=== PATIENT | female | born 1995 ===

== ENCOUNTER 2017-08-06 17:18 | Inpatient (IN) | payer MEDICAID ==
--- NOTE | 2017-08-06 17:34 | C.PDOC ---
History Of Present Illness 22 y/o F c PMHx opiate abuse sent from [facility] program for suicidal thoughts without plan. Denies HI or hallucinations. Denies pain, fever, dyspnea. Time Seen by Provider: 08/06/17 17:32 Chief Complaint (Nursing): Psychiatric Evaluation Past Medical History Vital Signs: Last Vital Signs Temp 98.6 F 08/06/17 18:28 Pulse 102 H 08/06/17 18:28 Resp 20 08/06/17 18:28 BP 112/76 08/06/17 18:28 Pulse Ox 100 08/06/17 18:28 Surgical History: Tonsillectomy Family History: States: No Known Family Hx - Social History Hx Alcohol Use: No Hx Substance Use: Yes (LAST USE MAY 2017) Review Of Systems Except As Marked, All Systems Reviewed And Found Negative. Constitutional: Negative for: Fever Cardiovascular: Negative for: Chest Pain Physical Exam - Physical Exam Additional Physical Exam Comments: Constitutional: No acute distress. Head: Normocephalic. Atraumatic. Eyes: PERRL. ENT: Moist mucous membranes. Neck: Supple. Cardiovascular: Regular rate. Radial pulse 2+ bilaterally. Chest: No tenderness. Respiratory: Clear to auscultation bilaterally. GI: Soft. Nontender. Nondistended. Back: No CVA tenderness. Musculoskeletal: No tenderness or swelling. Skin: No rash. Neurologic: Alert, no focal deficit. ED Course And Treatment - Laboratory Results Result Diagrams: 08/06/17 17:46 08/06/17 17:46 Medical Decision Making Medical Decision Making: Will medically clear for psychiatric evaluation. Medically clear, accepted for admission by Dr. Maldonado. Disposition - Disposition Disposition: HOSPITALIZED Disposition Time: 19:16 Condition: FAIR Forms: [facility]: [facility]t (Slovak) - Clinical Impression Clinical Impression: Bipolar disorder
[2017-08-06 17:55] LABS: BASO % 0.5 % (0.0-2.0); EOS # 0.1 K/uL (0.0-0.7); EOS % 1.6 % (0.0-4.0); HEMATOCRIT 37.1 % (34.0-47.0); LYMPH # 3.2 K/uL (1.0-4.3); LYMPH % 47.5 % (20.0-40.0); MEAN CELL VOLUME 83.1 fL (81.0-99.0); MEAN CORPUSCULAR HGB CONC 33.6 g/dL (33.0-37.0); MEAN PLATELET VOLUME 8.5 fL (7.2-11.7); MONO # 0.3 K/uL (0.0-0.8); MONO % 5.2 % (0.0-10.0); RED CELL DISTRIBUTION WIDTH 15.7 % (11.5-14.5); WHITE BLOOD COUNT 6.7 K/uL (4.8-10.8)
[2017-08-06 18:12] LABS: ALB/GLOB RATIO 0.9 (1.0-2.1); ALCOHOL SERUM < 10 mg/dl (0-10); ALKALINE PHOSPHATASE 58 U/L (38-126); ALT/SGPT 332 U/L (9-52); AST/SGOT 106 U/L (14-36); BILIRUBIN,TOTAL 0.2 mg/dL (0.2-1.3); BLOOD UREA NITROGEN 16 mg/dL (7-17); CARBON DIOXIDE 27 mmol/L (22-30); CHLORIDE 107 mmol/L (98-107); GFR AFRICAN-AMERICAN > 60; GLUCOSE,RANDOM 96 mg/dL (65-105); POTASSIUM 3.7 mmol/L (3.6-5.2); SODIUM 140 mmol/L (132-148); TOTAL PROTEIN 8.9 g/dL (6.3-8.3)
[2017-08-06 18:23] LABS: RBC URINE 5 /hpf (0-3); URINE BACTERIA RARE (<OCC); URINE BILIRUBIN NEGATIVE (NEGATIVE); URINE BLOOD NEGATIVE (NEGATIVE); URINE COLOR Yellow (YELLOW); URINE GLUCOSE (UA) NORMAL (Normal); URINE KETONE NEGATIVE (NEGATIVE); URINE LEUKOCYTE ESTERASE 3+ Leu/uL (Negative); URINE PROTEIN NEGATIVE (NEGATIVE); URINE UROBILINOGEN NORMAL mg/dL (0.2-1.0); WBC URINE 20 /hpf (0-5)
--- NOTE | 2017-08-06 20:27 | PCM.BM ---
<Heydi Kirk - Last Filed: 08/06/17 20:23> Treatment Plan Problems - Problems identified on initial assessmt Depression Date Initiated: 08/06/17 Time Initiated: 20:23 Assessment reference: NA Status: Active Suicidal Ideation Date Initiated: 08/06/17 Time Initiated: 20:23 Assessment reference: NA Status: Active Treatment assets and liabiliti Patient Assests: cooperative, self-reliant, ADL independent, physically healthy , negotiates basic needs, cognitively intact Patient Liabilities: live alone ([facility]), financial problems, poor support system, substance abuse (Hx of heroin Abuse last used 05/2017), medical problems (Hep C) - Milieu Protocol Maintain good personal hygiene: daily Encourage regular showers, daily Remind patient to perform daily oral care, every shift Assist patient to perform ADL's (Self), other Assist patient to perform ADL's Conduct patient checks and document Observation sheet: Q15 minutes (safety) Maintain personal safety: every shift Educate patient to report safety concerns to staff, every shift Monitor environment for contraband/sharps Medication safety: Monitor for expected outcome, potential side effects: every shift, Assess barriers to learning: every shift, Assess readiness for medication education: every shift <Kellie Ardon - Last Filed: 08/07/17 10:54> Family Contact Family involvement: Family/SO is involved - Goals for Treatment Patient goals for treatment: "I really just want to go back to [facility]." Discharge/Continuing Care - Education Needs Education Needs: Patient Medication, Patient Coping Skills - Discharge Discharge Criteria: Tolerates medication w/o severe side effects, Free of Suicidal thoughts, Reduction of target symptoms Discharge to:: Substance Abuse Rehab - Treatment Team Participation Discussed with Family/SO: No Was Patient/Family/SO present at Treatment Team Meeting: Yes <Guillermo Rubin - Last Filed: 08/07/17 13:25> - Diagnosis (1) Opioid use disorder, severe, in controlled environment Status: Acute Interventions: 08/07/17 13:25 * Assess 7x/week regarding severity of withdrawal * Educate regarding risks, benefits, side effects and alternatives of medications * Use Motivational Interviewing for abstinence * Use CBT for relapse prevention * Medication management for withdrawal symptoms * Encourage medication assisted treatment * (2) Bipolar disorder Status: Acute Interventions: 08/07/17 13:25 * Assess/adjust medications daily and /or as needed * See patient on an individual basis 7x/week to assess level of manic behaviors and stability * Discuss risks, benefits, side effects and alternatives of medications *
[2017-08-06] MEDS ORDERED: Lithium Carbonate ER Tab 450 MG PO ONE (22:00)
[2017-08-07 05:58] VITALS: O2SAT 98
--- NOTE | 2017-08-07 13:55 | PCM.PYCHPN ---
Psychiatric Progress Note - Psychiatric Progress Note Patient seen today, length of contact: 15 minutes Patient Chief Complaint: " I was not able to sleep well at night and I do have nightmares" Problems Identified/Issues Discussed: The pt is seen, chart reviewed, case discussed with staff. Support given, CBT and [place] used briefly No new symptoms reported No SEs from medications, risks discussed. Patient states that she had worsening depressive symptoms after receiving depo injection Patient states that her bipolar disorder has been misdiagnosed for ADHD in the past Patient states that she has experienced moments of "high energy" in the past but unable to recall the last episode. Medication Change: Yes (Started abilify 5mg, Lexapro 5mg, Gabapentin 300mg, Atarax 25mg, Trazadone ) Medical Record Reviewed: Yes Mental Status Examination - Cognitive Function Orientation: Person, Place, Situation, Time Memory: Intact Attention: WNL Concentration: WNL Association: WNL Fund of Knowledge: WN - Mood Mood: Depressed, Anxious - Affect Affect: Other (Appropriate ) - Speech Speech: Appropriate - Formal Thought Process Formal Thought Process: No Impairment - Suicidal Ideation Suicidal Ideation: No - Homicidal Ideation Homicidal Ideation: No Goal/Treatment Plan - Goal/Treatment Plan Progress Toward Problem(s) and Goals/Treatment Plan: Assessment/Plan: 1. Bipolar II disorder Medications: * Abilify 5mg PO QPM 2. Depression: * Lexapro 5mg PO daily 3. Anxiety: * Atarax 25mg PO Q4H PRN * Lexapro 5mg PO daily 4. Insomnia: * Trazadone 50mg PO HS PRN 5. History of substance abuse (last used 05/2017): * Gabapentin augmentation, 300mg PO BID * Patient does not want to attend a suboxone or methadone clinic 6. Tobacco use: * Nicotine 1 Patch TD Continue medications Support and psychoeducation daily Attend groups and activities daily Patient plans to go to [facility] upon discharge
--- NOTE | 2017-08-07 19:20 | PCM.PSYCH ---
Initial Psychiatric Evaluation - Initial Psychiatric Evaluation Chief Complaint (in patient's own words): " Suicidal ideation" History of Present Illness and Precipitating Events: This is 22 year old [place] female, single, unemployed, staying at [facility] program has mandated by the [place] [facility] depression program, who has a history of heroin, cocaine, marijuana, PCP and xanax and hep C and bipolar. Patient is functional. Patient presents from [facility] for suicidal thoughts without plan. Patient uses 23 bags or bundles via IV for 6 years Patient use cocaine via IV Patient uses marijuana, PCP and xanax No methadone or suboxone program Past psych history: Bipolar, depression and anxiety Family psych history: Dad ( Bipolar disorder and substance abuse Uncle (Bipolar disorder) Medical history: Denies Current Medications: Active Medications Generic Name Dose Route Start Last Admin Trade Name Freq PRN Reason Stop Dose Admin Aripiprazole 5 mg 08/07/17 18:00 08/07/17 17:49 Abilify PO 5 mg QPM [place] Administration Escitalopram Oxalate 5 mg 08/07/17 13:00 08/07/17 15:06 Lexapro PO 5 mg DAILY [place]QUIS Administration Gabapentin 300 mg 08/07/17 18:00 08/07/17 17:49 Neurontin PO 300 mg BID [place]IS Administration Hydroxyzine HCl 25 mg 08/07/17 12:57 08/07/17 17:58 Atarax PO 25 mg Q4H PRN Administration Anxiety Ibuprofen 400 mg 08/07/17 12:57 08/07/17 17:58 Motrin Tab PO 400 mg Q6H PRN Administration Pain, moderate (4-7) Nicotine 1 patch 08/07/17 12:45 08/07/17 15:05 Nicoderm Cq TD 1 patch DAILY CHIQUIS Administration Pneumococcal Polyvalent Vaccine 0.5 ml 08/09/17 10:00 Pneumovax 23 Vaccine IM 08/09/17 10:01 .ONCE ONE Trazodone HCl 50 mg 08/07/17 22:00 Desyrel PO HS PRN Insomnia Past Psychiatric History - Past Psychiatric History Pertinent Medical Hx (Current Medical&Sleep Prob, Allergies): Allergies Allergy/AdvReac Type Severity Reaction Status Date / Time No Known Allergies Allergy Verified 08/06/17 17:25 Calcium Carb/Vitamin D3/Vit K1 [Calcium + D Soft Chewable Tab] 1 each PO DAILY 08/06/17 Cyclobenzaprine [Cyclobenzaprine HCl] 10 mg PO HS 08/06/17 Gabapentin [Neurontin] 1 cap PO HS 08/06/17 [place] Carbonate [[place] Carbonate 300MG] 300 mg PO BID 08/06/17 Melatonin 5 mg PO HS 08/06/17 OLANZapine [Zyprexa] 7.5 mg PO HS 08/06/17 Propranolol HCl 10 mg PO BID 08/06/17 Review of Systems - Neurological Neurological: UNREMARKABLE - Psychiatric Psychiatric: Abnormal Sleep Pattern, Anxiety, Depression. absent: Hallucinations, Homicidal Ideation, Panic Attacks, Suicidal Ideation Mental Status Examination - Affect Affect: Depressed - Motor Activity Motor Activity: Calm - Reliability in Providing Information Reliability in Providing Information: Good - Speech Speech: Organized - Mood Mood: Anxious - Formal Thought Process Formal Thought Process: No Impairment - Cognitive Functions Orientation: Person, Place, Situation, Time Sensorium: Alert Attention/Concentration: Attentive Abstract Thinking: [place] Estimate of Intelligence: Average Judgement: Intact, as evidence by: Insight regarding need for hospitalization Memory: Recent intact, as evidence by: Ability to recall events of the day DSM 5 DX - Recommended/Plan of Treatment Treatment Recommendations and Plan of Treatment: Assessment/Plan: 1. Bipolar II disorder Medications: * Abilify 5mg PO QPM 2. Depression: * Lexapro 5mg PO daily 3. Anxiety: * Atarax 25mg PO Q4H PRN * Lexapro 5mg PO daily 4. Insomnia: * Trazadone 50mg PO HS PRN 5. History of substance abuse (last used 05/2017): * Gabapentin augmentation, 300mg PO BID * Patient does not want to attend a suboxone or methadone clinic 6. Tobacco use: * Nicotine 1 Patch TD Continue medications Support and psychoeducation daily Attend groups and activities daily Patient plans to [facility] discharge Projected ELOS: 5 Prognosis: Good with treatment Discharge Plan and Discharge Criteria: Plans [facility] discharge - Smoking Cessation Smoking Cessation Initiated: Yes
--- NOTE | 2017-08-08 14:00 | PCM.PYCHPN ---
Psychiatric Progress Note - Psychiatric Progress Note Patient seen today, length of contact: 15 minutes Patient Chief Complaint: " Suicidal ideation" Problems Identified/Issues Discussed: The pt is seen, chart reviewed, case discussed with staff. Support given, CBT and [place] used briefly No new symptoms reported No SEs from medications, risks discussed. During today's encounter, patient states that her symptoms are improving, however, still complains about sleep disturbance Medication Change: Yes (May start seroquel 100mg PO ) Medical Record Reviewed: Yes Mental Status Examination - Cognitive Function Orientation: Person, Place, Situation, Time Attention: WNL Concentration: WNL Association: WNL Fund of Knowledge: WN - Mood Mood: Anxious - Affect Affect: Depressed - Speech Speech: Appropriate - Formal Thought Process Formal Thought Process: No Impairment - Suicidal Ideation Suicidal Ideation: No - Homicidal Ideation Homicidal Ideation: No Goal/Treatment Plan - Goal/Treatment Plan Progress Toward Problem(s) and Goals/Treatment Plan: Assessment/Plan: 1. Bipolar II disorder Medications: * Abilify 5mg PO QPM 2. Depression: * Lexapro 5mg PO daily 3. Anxiety: * Atarax 25mg PO Q4H PRN * Lexapro 5mg PO daily 4. Insomnia: * Trazadone 50mg PO HS PRN ----> May switch to seroquel 100mg PO HS 5. History of substance abuse (last used 05/2017): * Gabapentin augmentation, 300mg PO BID * Patient does not want to attend a suboxone or methadone clinic 6. Tobacco use: * Nicotine 1 Patch TD Continue medications Support and psychoeducation daily Attend groups and activities daily Patient plans to [facility] discharge Estimated Date of D/C: 08/11/17
[2017-08-09] MEDS ORDERED: Influenza Vaccine 60 mcg/0.5 mL SYR (4YR UP) IM ONE (10:00)
[2017-08-09] MEDS ORDERED: Pneumococcal 23-Valent Vaccine IM ONE (10:00)
--- NOTE | 2017-08-09 15:47 | PCM.PYCHPN ---
Psychiatric Progress Note - Psychiatric Progress Note Patient seen today, length of contact: 15 minutes Patient Chief Complaint: "I am doing well" Problems Identified/Issues Discussed: The pt is seen, chart reviewed, case discussed with staff. Support given, CBT and [place] used briefly No new symptoms reported No SEs from medications, risks discussed. During today's encounter, patient states that her symptoms are improving, however, still continues to complain of sleep disturbance Medication Change: Yes (Seroquel 50mg PO HS) Medical Record Reviewed: Yes Mental Status Examination - Cognitive Function Orientation: Person, Place, Situation, Time Attention: WNL Concentration: WNL Association: WNL Fund of Knowledge: WN - Mood Mood: Other (Improving, stable ) - Affect Affect: Depressed - Speech Speech: Appropriate - Formal Thought Process Formal Thought Process: No Impairment - Suicidal Ideation Suicidal Ideation: No - Homicidal Ideation Homicidal Ideation: No Goal/Treatment Plan - Goal/Treatment Plan Progress Toward Problem(s) and Goals/Treatment Plan: Assessment/Plan: 1. Bipolar II disorder Medications: * Abilify 5mg PO QPM 2. Depression: * Lexapro 5mg PO daily 3. Anxiety ( Unspecified): * Atarax 25mg PO Q4H PRN * Lexapro 5mg PO daily 4. Insomnia: * Trazadone 50mg PO HS PRN * Seroquel 50mg PO HS 5. History of substance abuse (last used 05/2017): * Gabapentin augmentation, 300mg PO BID * Patient does not want to attend a suboxone or methadone clinic 6. Tobacco use: * Nicotine 1 Patch TD Continue medications Support and psychoeducation daily Attend groups and activities daily Patient plans to go to [facility] upon discharge Estimated Date of D/C: 08/11/17
--- NOTE | 2017-08-10 16:48 | PCM.PYCHPN ---
Psychiatric Progress Note - Psychiatric Progress Note Patient seen today, length of contact: 15 minutes Patient Chief Complaint: "I am doing very well" Problems Identified/Issues Discussed: The pt is seen, chart reviewed, case discussed with staff. Support given, CBT and [place] used briefly No new symptoms reported, patient is sleeping better No SEs from medications, risks discussed After care discussed, support and psycoeducation given Medication Change: No Medical Record Reviewed: Yes Mental Status Examination - Cognitive Function Orientation: Person, Place, Situation, Time Attention: WNL Concentration: WNL Association: WNL Fund of Knowledge: WNL - Mood Mood: Other (Improving, stable ) - Affect Affect: Depressed - Speech Speech: Appropriate - Formal Thought Process Formal Thought Process: No Impairment - Suicidal Ideation Suicidal Ideation: No - Homicidal Ideation Homicidal Ideation: No Goal/Treatment Plan - Goal/Treatment Plan Progress Toward Problem(s) and Goals/Treatment Plan: Assessment/Plan: 1. Bipolar II disorder Medications: * Abilify 5mg PO QPM 2. Depression: * Lexapro 10mg PO daily 3. Anxiety ( Unspecified): * Atarax 25mg PO Q4H PRN * Lexapro 10mg PO daily 4. Insomnia: * Trazadone 50mg PO HS PRN * Seroquel 50mg PO HS 5. History of substance abuse (last used 05/2017): * Gabapentin augmentation, 300mg PO BID * Patient does not want to attend a suboxone or methadone clinic 6. Tobacco use: * Nicotine 1 Patch TD Continue medications Support and psychoeducation daily Attend groups and activities daily Patient plans to go to [facility] upon discharge Estimated Date of D/C: 08/11/17 - Smoking Cessation Smoking Cessation Initiated: Yes
[2017-08-11 06:29] VITALS: RESP 20; TEMP 98.3
[2017-08-11 09:51] VITALS: BP 106/71; PULSE 116
--- NOTE | 2017-08-11 11:29 | PCM.PYCHDC ---
Mental Status Examination - Mental Status Examination Orientation: Person, Place, Situation, Time Memory: Intact Mood: Neutral Affect: Other (Normal, Appropriate ) Speech: Appropriate Attention: WNL Concentration: WNL Formal Thought Process: No Impairment Suicidal Ideation: No Current Homicidal Ideation?: No Discharge Summary - Discharge Note Reason for Hospitalization: " I am depressed, SI" Consultations:: List each consultation separately and include: 1. Reason for request. 2. Findings. 3. Follow-up Summary of Hospital Course include:: 1. Description of specific treatment plan utilized for patients during their course of treatmen. 2. Summarize the time- course for resolution of acute symptoms and/or regressed behaviors. 3. Describe issues identified and worked on during hospitalization. 4. Describe medication utilized. 5. Describe medical problems identified and treated. 6. Reassessment of suicide risk Summary of Hospital Course: Patient was admitted and started on treatment with psychotherapy, support, psychoeducation and medications ME and CBT used Patient attended groups and activities Patient did well and interacted well with staff members and was cooperative All the risks and benefits of medications are discussed and the patient understood and agreed Patient improved with the treatments provided - Final Diagnosis (DSM 5) Condition upon Discharge: IMPROVED Disposition: HOME/ ROUTINE Follow-up Treatment Plan: Continue below medications after discharge. Follow after care plan as discussed. Use relapse prevention skills Return to ER or call 911 if suicidal, homicidal or symptoms relapse. Stay away from stress, alcohol and drugs. See primary doctor as instructed Patient is going [facility] Prescriptions/Medication Reconciliation: ARIPiprazole [Abilify] 10 mg PO HS #30 tab Escitalopram [Lexapro] 10 mg PO DAILY #30 tab Gabapentin [Neurontin] 300 mg PO BID #60 cap Prazosin HCl [Minipress] 1 mg PO HS #30 cap QUEtiapine [SEROquel] 100 mg PO HS #30 tab - Smoking Cessation Smoking Cessation Medication prescribed: No - Antipsychotic Medications Pt discharged on 2 or more routine antipsychotic medications: No
== END 2017-08-11 14:55 | disposition home or self-care (01) | DRG 430 ==
LOC: C.ER 17:18 → C.5E 19:14
PROVIDERS: ADMIT Psychiatry & Neurology Psychiatry; ATTEND Psychiatry & Neurology Psychiatry
DX: F31.81 Bipolar II disorder (principal); F11.20 Opioid dependence, uncomplicated; F14.90 Cocaine use, unspecified, uncomplicated; F13.20 Sedative, hypnotic or anxiolytic dependence, uncomplicated; F41.9 Anxiety disorder, unspecified; F17.210 Nicotine dependence, cigarettes, uncomplicated; G47.00 Insomnia, unspecified

== ENCOUNTER 2017-08-23 16:03 | Inpatient (IN) | payer MEDICAID ==
[2017-08-23 17:03] VITALS: BMI 29.9
[2017-08-23 17:44] LABS: BASO % 0.4 % (0.0-2.0); EOS % 1.3 % (0.0-4.0); HEMOGLOBIN 12.6 g/dL (11.0-16.0); LYMPH % 40.9 % (20.0-40.0); MEAN CORPUSCULAR HEMOGLOBIN 27.2 pg (27.0-31.0); MEAN CORPUSCULAR HGB CONC 32.4 g/dL (33.0-37.0); MEAN PLATELET VOLUME 8.3 fL (7.2-11.7); MONO % 5.2 % (0.0-10.0); NEUT # 3.3 K/uL (1.8-7.0); NEUT % 52.2 % (50.0-75.0); NRBC % 0.1 % (0.0-2.0); RBC 4.62 Mil/uL (3.80-5.20); RED CELL DISTRIBUTION WIDTH 14.2 % (11.5-14.5); WHITE BLOOD COUNT 6.2 K/uL (4.8-10.8)
[2017-08-23 17:45] LABS: EOS # 0.1 K/uL (0.0-0.7); LYMPH # 2.6 K/uL (1.0-4.3); MONO # 0.3 K/uL (0.0-0.8)
--- NOTE | 2017-08-23 17:54 | C.PDOC ---
History Of Present Illness 22 year old female presents to the ED for psychiatric evaluation concerning suicidal ideation. Patient states she was evaluated in this ED 2 weeks ago and underwent admission. Patient notes she feels suicidal again and presents to the ED for further evaluation. Patient denies suicidal plan, homicidal ideation and has no other complaints at this time. Chief Complaint (Nursing): Psychiatric Evaluation History Per: Patient History/Exam Limitations: no limitations Onset/Duration Of Symptoms: Hrs Current Symptoms Are (Timing): Still Present Suicide/Self Injury Attempted (Context): None Associated Symptoms: Suicidal Thoughts. denies: Suicidal Plan Involuntary Hold By: None Recent travel outside of the [place]: No Additional History Per: Patient Past Medical History Reviewed: Historical Data, Nursing Documentation, Vital Signs Vital Signs: Last Vital Signs Temp 98 F 08/23/17 17:23 Pulse 86 08/23/17 17:23 Resp 16 08/23/17 17:23 BP 105/72 08/23/17 17:23 Pulse Ox 100 08/23/17 18:02 - Medical History PMH: Anxiety, Bipolar Disorder, Depression, Hepatitis (Hep C) Denies: Diabetes, HIV, Seizures, Sexually Transmitted Disease Surgical History: Tonsillectomy Family History: States: Unknown Family Hx - Social History Hx Alcohol Use: No Hx Substance Use: Yes - Immunization History Hx Tetanus Toxoid Vaccination: No Hx Influenza Vaccination: No Hx Pneumococcal Vaccination: No Review Of Systems Psych: Positive for: Suicidal ideation. Negative for: Other (suicidal plan ) Physical Exam - Physical Exam Appears: Non-toxic, No Acute Distress Skin: Normal Color, Warm, Dry Head: Atraumatic, Normacephalic Eye(s): bilateral: Normal Inspection Oral Mucosa: Moist Neck: Supple Chest: Symmetrical, No Deformity, No Tenderness Cardiovascular: Rhythm Regular Respiratory: Normal Breath Sounds, No Accessory Muscle Use Extremity: Normal ROM, Capillary Refill (less than 2 seconds ) Neurological/Psych: Other (flat affect) Gait: Steady ED Course And Treatment - Laboratory Results Result Diagrams: 08/23/17 17:36 08/23/17 17:36 O2 Sat by Pulse Oximetry: 100 (on RA) Pulse Ox Interpretation: Normal Progress Note: Bloodwork and urinalysis ordered and reviewed. Patient placed in 1:1 ED observation. She is medically cleared for psych evaluation and admission, however she has UTI and will need Macrobid 100 mg q12 for 5 days. Patient was seen by Morgan, pending disposition. Disposition - Disposition Disposition Time: 19:11 Condition: STABLE Forms: [facility] (Chinese) - Clinical Impression Clinical Impression: Suicidal ideations - PA / BINDERY HELPER / Resident Statement MD/DO has reviewed & agrees with the documentation as recorded. - Scribe Statement The provider has reviewed the documentation as recorded by the Scribe (Darling Ruiz) All medical record entries made by the Scribe were at my direction and personally dictated by me. I have reviewed the chart and agree that the record accurately reflects my personal performance of the history, physical exam, medical decision making, and the department course for this patient. I have also personally directed, reviewed, and agree with the discharge instructions and disposition. Physician Patient Turnover Patient Signed Over To: [facility] [place] Handoff Comments: pending dispo
[2017-08-23 18:07] LABS: HCG,QUALITATIVE URINE NEGATIVE (NEGATIVE)
[2017-08-23 18:09] LABS: ALB/GLOB RATIO 1.1 (1.0-2.1); ALT/SGPT 65 U/L (9-52); AST/SGOT 39 U/L (14-36); BLOOD UREA NITROGEN 14 mg/dL (7-17); CALCIUM 8.6 mg/dl (8.6-10.4); GFR AFRICAN-AMERICAN > 60; GFR NON-AFRICAN AMERICAN > 60
[2017-08-23 18:14] LABS: SQUAMOUS EPITHIAL 8 /hpf (0-5); URINE BILIRUBIN NEGATIVE (NEGATIVE); URINE BLOOD NEGATIVE (NEGATIVE); URINE CLARITY Hazy (Clear); URINE COLOR Yellow (YELLOW); URINE GLUCOSE (UA) NORMAL (Normal); URINE LEUKOCYTE ESTERASE 3+ Leu/uL (Negative); URINE NITRATE NEGATIVE (NEGATIVE); URINE PROTEIN NEGATIVE (NEGATIVE); URINE UROBILINOGEN NORMAL mg/dL (0.2-1.0)
[2017-08-23 18:22] LABS: BARBITURATES, UR NEGATIVE (NEGATIVE); BENZODIAZEPINES, UR NEGATIVE (NEGATIVE); OPIATES, UR NEGATIVE (NEGATIVE); PHENCYCLIDINE, UR NEGATIVE (NEGATIVE)
--- NOTE | 2017-08-23 21:43 | PCM.BM ---
<Miquel Stark - Last Filed: 08/23/17 21:41> Treatment Plan Problems - Problems identified on initial assessmt Depression Date Initiated: 08/23/17 Time Initiated: 21:41 Assessment reference: NA Status: Active Suicidal Ideations Date Initiated: 08/23/17 Time Initiated: 21:41 Assessment reference: NA Status: Active Treatment assets and liabiliti Patient Assests: cooperative, self-reliant, ADL independent, physically healthy , negotiates basic needs, cognitively intact Patient Liabilities: live alone ([facility]), poor support system (problems with family), relationship conflicts, substance abuse (hx of heroin) - Milieu Protocol Maintain good personal hygiene: daily Encourage regular showers, every shift Remind patient to perform daily oral care, every shift Assist patient to perform ADL's Conduct patient checks and document Observation sheet: Q15 minutes (For safety) Maintain personal safety: every shift Educate patient to report safety concerns to staff, every shift Monitor environment for contraband/sharps Medication safety: Monitor for expected outcome, potential side effects: every shift, Assess barriers to learning: every shift, Assess readiness for medication education: every shift <Therese Daily - Last Filed: 08/25/17 11:08> - Diagnosis (1) Bipolar disorder Status: Acute Interventions: 08/25/17 11:08 * Assess/adjust medications daily and /or as needed * See patient on an individual basis 7x/week to assess level of manic behaviors and stability * Discuss risks, benefits, side effects and alternatives of medications * (2) Opioid use disorder, severe, in controlled environment Status: Acute Interventions: 08/25/17 11:09 * Assess 7x/week regarding severity of withdrawal * Educate regarding risks, benefits, side effects and alternatives of medications * Use Motivational Interviewing for abstinence * Use CBT for relapse prevention * Medication management for withdrawal symptoms * Encourage medication assisted treatment * <Kellie Ardon - Last Filed: 08/25/17 11:11> Family Contact Family involvement: Famliy/SO not involved - Goals for Treatment Patient goals for treatment: "I want to go back to rehab." Discharge/Continuing Care - Education Needs Education Needs: Patient Medication, Patient Coping Skills - Discharge Discharge Criteria: Tolerates medication w/o severe side effects, Free of Suicidal thoughts, Reduction of target symptoms Discharge to:: Substance Abuse Rehab - Treatment Team Participation Discussed with Family/SO: No Was Patient/Family/SO present at Treatment Team Meeting: Yes
--- NOTE | 2017-08-24 11:50 | PCM.PSYCH ---
Initial Psychiatric Evaluation - Initial Psychiatric Evaluation Type of Admission: Voluntary Legal Status: Capacity Chief Complaint (in patient's own words): I feel like I am suicidal again History of Present Illness and Precipitating Events: Patient is a 22 year old female who was brought to the ED because of suicidal ideation and depression. The patient was recently here on 08/06/17 to 08/12/17 for suicidal ideation. Following this she began a program at [facility] for a history of abusing heroine. Her last time using heroine was June 10 2017. She expressed that she is enjoying the program there but is nervous about her current medications and wished for them to be reviewed. As per the ED notes, pt identified triggers as family loss, feeling sad, isolated. Patient reported having times when she fells on top of the world and sometimes low she reported feeling this way for a couple of days. Patient denied sleeping or weight problems. She present with a flat affect, constricted mood. Patient reported feeling in a fang, dissociated, distant with friends and isolated. Patient reported currently living at [facility] seeking long term care social worker residential program for heroin. Patient reported previous 2 detox experiences at [facility] in 2013 and [facility] in May 2017. During her last admission she was started on Abilify 5mg daily and Seraquil 50mg daily. Ever since this medications she states she feels as if she is "in a fog and messed up." Patient reports that she currently feels distant and isolated. Since the medication was started she has had problems focusing, concentrating, and formulating sentences. She states that "she needs to process , pause, then speak" which was noted in her speech during the interview. She reports that the new medication is also making her dizzy and stiff. Patient is still reported feelings of depression but they have improved slightly with the medication. Her anxiety since her last admission has been well controlled. Patient denies auditory/visual hallucination and paranoia. Patient also reported facial/hand/foot swelling in the mornings that started "a long time before my new medications." PMH: Bipolar, depression, hypothyroid. Allergies: NKDA Social: Lives with mother. 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 Currently on a nicotine patch. Current Medications: Active Medications Generic Name Dose Route Start Last Admin Trade Name Freq PRN Reason Stop Dose Admin Escitalopram Oxalate 10 mg 08/24/17 10:00 01/04/18 09:40 Lexapro PO 10 mg DAILY CHIQUIS Administration Hydroxyzine HCl 25 mg 08/23/17 22:15 08/23/17 22:41 Atarax PO 25 mg Q8H PRN Administration Anxiety Ibuprofen 400 mg 08/23/17 22:15 Motrin Tab PO Q6H PRN Pain, moderate (4-7) Nicotine 1 patch 08/24/17 12:00 08/24/17 11:29 Nicoderm Cq TD 1 patch DAILY CHIQUIS Administration Quetiapine Fumarate 50 mg 08/23/17 22:15 08/23/17 22:41 Seroquel PO 50 mg HS CHIQUIS Administration Past Psychiatric History - Past Psychiatric History Previous Treatment History: Inpatient At [facility] hospital: [facility] Date: 08/06/17 Pertinent Medical Hx (Current Medical&Sleep Prob, Allergies): Allergies Allergy/AdvReac Type Severity Reaction Status Date / Time No Known Allergies Allergy Verified 08/23/17 16:57 Calcium Carb/Vitamin D3/Vit K1 [Calcium + D Soft Chewable Tab] 1 each PO DAILY 08/06/17 ARIPiprazole [Abilify] 10 mg PO HS #30 tab 08/11/17 Escitalopram [Lexapro] 10 mg PO DAILY #30 tab 08/11/17 Gabapentin [Neurontin] 300 mg PO BID #60 cap 08/11/17 Prazosin HCl [Minipress] 1 mg PO HS #30 cap 08/11/17 QUEtiapine [SEROquel] 100 mg PO HS #30 tab 08/11/17 Benzocaine 7.5% [Orajel 7.5%] 7.5 gr MM DAILY 08/23/17 Levothyroxine [Synthroid] 75 mcg PO DAILY 08/23/17 Naproxen [Naprosyn] 500 mg PO BID 08/23/17 Review of Systems - Review of Systems All systems: reviewed and no additional remarkable complaints except - Psychiatric Psychiatric: Anxiety, Depression, Difficulty Concentrating, Suicidal Ideation Mental Status Examination - Personal Presentation Personal Presentation: Looks older than stated age - Affect Affect: Constricted, Flat, Depressed - Motor Activity Motor Activity: Calm - Reliability in Providing Information Reliability in Providing Information: Good - Speech Speech: Organized, Other Additional comments: Slow speech with a groggy tone - Mood Mood: Depressed - Formal Thought Process Formal Thought Process: No Impairment - Obsessions/Compulsions Obsessions: No Compulsions: No - Cognitive Functions Orientation: Person, Place, Situation, Time Sensorium: Alert, Drowsy, Lethargic Attention/Concentration: Attentive Abstract Thinking: [place] Estimate of Intelligence: Below average Judgement: Imparied, as evidence by: Poor judgement, Imparied, as evidence by: Lack of insight into illness - Risk Risk: Suicidal, Diminished functioning - Limitations Limitations: Living alone DSM 5 DX - DSM 5 DSM 5 Diagnosis: Bipolar disorder mixed severe without psychotic features Opioid use severe in early remission - Recommended/Plan of Treatment Treatment Recommendations and Plan of Treatment: Bipolar disorder mixed severe without psychotic features -CBT -Psychoeducation -Supportive therapy, group therapy, individual therapy -Neurontin 300 mg po tid -D/C Abilify 10 mg PO QHS -Reduce Seroquel to 50 mg PO QHS -Continue Lexapro 10 mg PO Daily Opioid use severe in early remission -CBT -Psychoeducation -Supportive therapy, individual therapy -Use [place] for abstinence - Smoking Cessation Smoking Cessation Initiated: No
--- NOTE | 2017-08-25 11:05 | PCM.PYCHPN ---
Psychiatric Progress Note - Psychiatric Progress Note Patient seen today, length of contact: 15 min Patient Chief Complaint: I feel little better.' Problems Identified/Issues Discussed: Patient seen and evaluated, chart reviewed and discussed with the nurse. Patient remained irritable and still reports racing of thoughts and flight of ideas. She reports some improvement in her confusion and reports that her thought process is getting normal. She remained isolated, confined and withdrawn. Patient is compliant with medications and denies any side effects. Symptoms are improving but need more time to stabilize. Support and psychoeducation given. Medication Change: Yes (increase neurontin, start prazosin) Medical Record Reviewed: Yes Mental Status Examination - Cognitive Function Orientation: Person, Place, Situation, Time Memory: Intact Attention: WNL Concentration: Poor Association: WNL Fund of Knowledge: Poor - Mood Mood: Depressed - Affect Affect: Constricted, Flat, Depressed - Speech Speech: Soft - Formal Thought Process Formal Thought Process: No Impairment - Suicidal Ideation Suicidal Ideation: No - Homicidal Ideation Homicidal Ideation: No Goal/Treatment Plan - Goal/Treatment Plan Need for Continued Stay: Severe depression anxiety, Severe functional impairment Progress Toward Problem(s) and Goals/Treatment Plan: Bipolar disorder mixed severe without psychotic features -CBT -Psychoeducation -Supportive therapy, group therapy, individual therapy -Neurontin 400 mg po tid -Seroquel to 50 mg PO QHS -Continue Lexapro 10 mg PO Daily -Start Prazosin 1 mg PO QHS Opioid use severe in early remission -CBT -Psychoeducation -Supportive therapy, individual therapy -Use [place] for abstinence - Smoking Cessation Smoking Cessation Initiated: No
[2017-08-25] MEDS: Calcium-Vit D 250 mg-125 Units Tab UD PO SCH (14:06)
[2017-08-26] MEDS: Calcium-Vit D 250 mg-125 Units Tab UD PO SCH (09:04)
[2017-08-26] MEDS: Tmp-Smz 800 mg-160 mg DS Tab PO SCH ×2 (11:50→22:16)
--- NOTE | 2017-08-26 22:40 | PCM.PYCHPN ---
Psychiatric Progress Note - Psychiatric Progress Note Patient seen today, length of contact: 15 min Problems Identified/Issues Discussed: Patient seen and evaluated, chart reviewed and discussed with the nurse. Nurse input received that patient still irritable and need redirection multiple times. Pt still reports racing of thoughts and flight of ideas. She reports some improvement in her confusion. She remained isolated, confined and withdrawn. Patient is compliant with medications and denies any side effects. Symptoms are improving but need more time to stabilize. DSM 5 Symptoms Update: Bipolar disorder Medication Change: Yes (increase neurontin, start prazosin) Medical Record Reviewed: Yes Mental Status Examination - Cognitive Function Orientation: Person, Place, Situation, Time Memory: Intact Attention: WNL Concentration: Poor Association: WNL Fund of Knowledge: Poor Decription of patient's judgement and insights: limited/limited - Mood Mood: Depressed - Affect Affect: Constricted, Flat, Depressed - Speech Speech: Soft - Formal Thought Process Formal Thought Process: No Impairment - Suicidal Ideation Suicidal Ideation: No Plan: denied - Homicidal Ideation Homicidal Ideation: No Plan: denied Goal/Treatment Plan - Goal/Treatment Plan Need for Continued Stay: Severe depression anxiety, Discharge may exacerbated symptoms, Severe functional impairment Progress Toward Problem(s) and Goals/Treatment Plan: Continue current management and medications. Patient educated about risks, benefits, side effects & alternatives of meds. Pt verbalized understanding & agreed with the above.~ Therapy in milieu. Estimated Date of D/C: 08/31/17 - Smoking Cessation Smoking Cessation Initiated: No
[2017-08-27] MEDS: Tmp-Smz 800 mg-160 mg DS Tab PO SCH ×2 (10:30→22:58)
[2017-08-27] MEDS: Calcium-Vit D 250 mg-125 Units Tab UD PO SCH (10:30)
--- NOTE | 2017-08-27 17:29 | PCM.PYCHPN ---
Psychiatric Progress Note - Psychiatric Progress Note Patient seen today, length of contact: 15 min Patient Chief Complaint: "I was not able to sleep last night" Problems Identified/Issues Discussed: Patient seen and evaluated, chart reviewed and discussed with the nurse. Nurse input received that patient still irritable and need redirection multiple times. Pt still reports racing of thoughts and flight of ideas. She reports some improvement in her confusion. patient reported that she was not able to sleep last night. She remained isolated, confined and withdrawn. Patient is compliant with medications and denies any side effects. Symptoms are improving but need more time to stabilize. Medication Change: Yes (increase neurontin, start prazosin) Medical Record Reviewed: Yes Mental Status Examination - Cognitive Function Orientation: Person, Place, Situation, Time Memory: Intact Attention: WNL Concentration: Poor Association: WNL Fund of Knowledge: Poor Decription of patient's judgement and insights: limited/limited - Mood Mood: Depressed - Affect Affect: Constricted, Flat, Depressed - Speech Speech: Appropriate, Soft - Formal Thought Process Formal Thought Process: No Impairment Psychotic Thoughts and Behaviors: enied - Suicidal Ideation Suicidal Ideation: No Plan: denied - Homicidal Ideation Homicidal Ideation: No Plan: denied Goal/Treatment Plan - Goal/Treatment Plan Need for Continued Stay: Severe depression anxiety, Discharge may exacerbated symptoms, Severe functional impairment Progress Toward Problem(s) and Goals/Treatment Plan: Continue current management and medications, except increase in the Seroquel for mood stabilization. Patient educated about risks, benefits, side effects & alternatives of meds. Pt verbalized understanding & agreed with the above.~ Therapy in milieu. Estimated Date of D/C: 08/31/17 - Smoking Cessation Smoking Cessation Initiated: Yes
[2017-08-28] MEDS: Calcium-Vit D 250 mg-125 Units Tab UD PO SCH (10:00)
[2017-08-28] MEDS: Tmp-Smz 800 mg-160 mg DS Tab PO SCH ×3 (10:29→22:48)
--- NOTE | 2017-08-28 11:48 | PCM.PYCHPN ---
Psychiatric Progress Note - Psychiatric Progress Note Patient seen today, length of contact: 15 min Patient Chief Complaint: I feel little better.' Problems Identified/Issues Discussed: Patient seen and evaluated, chart reviewed and discussed with the nurse. Patient remained irritable and still reports racing of thoughts and flight of ideas. She reports some improvement in her confusion and reports that her thought process is getting normal. She remained isolated, confined and withdrawn. Patient is compliant with medications and denies any side effects. Symptoms are improving but need more time to stabilize. Support and psychoeducation given. Medication Change: Yes (increase neurontin, start prazosin) Medical Record Reviewed: Yes Mental Status Examination - Cognitive Function Orientation: Person, Place, Situation, Time Memory: Intact Attention: WNL Concentration: Poor Association: WNL Fund of Knowledge: Poor - Mood Mood: Depressed - Affect Affect: Constricted, Flat, Depressed - Speech Speech: Appropriate, Soft - Formal Thought Process Formal Thought Process: No Impairment - Suicidal Ideation Suicidal Ideation: No - Homicidal Ideation Homicidal Ideation: No Goal/Treatment Plan - Goal/Treatment Plan Need for Continued Stay: Severe depression anxiety, Discharge may exacerbated symptoms, Severe functional impairment Progress Toward Problem(s) and Goals/Treatment Plan: Bipolar disorder mixed severe without psychotic features -CBT -Psychoeducation -Supportive therapy, group therapy, individual therapy -Neurontin 400 mg po tid -Seroquel to 50 mg PO QHS -Continue Lexapro 10 mg PO Daily -Start Prazosin 1 mg PO QHS Opioid use severe in early remission -CBT -Psychoeducation -Supportive therapy, individual therapy -Use [place] for abstinence Estimated Date of D/C: 08/31/17
[2017-08-29 06:21] VITALS: O2SAT 98
[2017-08-29] MEDS: Calcium-Vit D 250 mg-125 Units Tab UD PO SCH (10:31)
[2017-08-29] MEDS: Tmp-Smz 800 mg-160 mg DS Tab PO SCH ×2 (10:52→22:38)
[2017-08-30] MEDS: Calcium-Vit D 250 mg-125 Units Tab UD PO SCH (09:32)
[2017-08-30] MEDS: Tmp-Smz 800 mg-160 mg DS Tab PO SCH ×2 (10:25→22:14)
[2017-08-31 06:26] VITALS: BP 80/53; PULSE 90; RESP 17; TEMP 98.7
--- NOTE | 2017-08-31 09:49 | PCM.PYCHDC ---
Mental Status Examination - Mental Status Examination Orientation: Person, Place, Situation, Time Memory: Intact Mood: Neutral Affect: Constricted Speech: Soft Attention: WNL Concentration: WNL Association: WNL Fund of Knowledge: WNL Formal Thought Process: No Impairment Description of patient's judgement and insight: good, fair Psychotic Thoughts and Behaviors: denies any AVH Suicidal Ideation: No Current Homicidal Ideation?: No Discharge Summary - Discharge Note Reason for Hospitalization: Patient is a 22 year old female who was brought to the ED because of suicidal ideation and depression. The patient was recently here on 08/06/17 to 08/12/17 for suicidal ideation. Following this she began a program at [facility] for a history of abusing heroine. Her last time using heroine was June 10 2017. She expressed that she is enjoying the program there but is nervous about her current medications and wished for them to be reviewed. As per the ED notes, pt identified triggers as family loss, feeling sad, isolated. Patient reported having times when she fells on top of the world and sometimes low she reported feeling this way for a couple of days. Patient denied sleeping or weight problems. She present with a flat affect, constricted mood. Patient reported feeling in a fang, dissociated, distant with friends and isolated. Patient reported currently living at [facility] seeking [facility] residential program for heroin. Patient reported previous 2 detox experiences at [facility] in 2013 and [facility] in May 2017. During her last admission she was started on Abilify 5mg daily and Seraquil 50mg daily. Ever since this medications she states she feels as if she is "in a fog and messed up." Patient reports that she currently feels distant and isolated. Since the medication was started she has had problems focusing, concentrating, and formulating sentences. She states that "she needs to process , pause, then speak" which was noted in her speech during the interview. She reports that the new medication is also making her dizzy and stiff. Patient is still reported feelings of depression but they have improved slightly with the medication. Her anxiety since her last admission has been well controlled. Patient denies auditory/visual hallucination and paranoia. Patient also reported facial/hand/foot swelling in the mornings that started "a long time before my new medications." Consultations:: List each consultation separately and include: 1. Reason for request. 2. Findings. 3. Follow-up Summary of Hospital Course include:: 1. Description of specific treatment plan utilized for patients during their course of treatmen. 2. Summarize the time- course for resolution of acute symptoms and/or regressed behaviors. 3. Describe issues identified and worked on during hospitalization. 4. Describe medication utilized. 5. Describe medical problems identified and treated. 6. Reassessment of suicide risk Summary of Hospital Course: During the course of her stay, patient (pt) started progressively improving and no longer remained irritable, depressed, and suicidal. Her mood and anxiety were improved and she started attending groups and meetings and started socializing. Patient denied any feelings of hopelessness, helplessness, and worthlessness, denied any problem with the sleep or appetite, denied suicidal ideation or homicidal ideation. Pt denied any auditory or visual hallucinations. Some changes were made in her current medications and patient was discharged on following medications. She tolerated these medications very well and denied any side effects. Pt is to be picked up by [facility] staff and transported back to their rehab at 11:30 a.m. today. - Diagnosis (1) Bipolar disorder Status: Acute (2) Opioid use disorder, severe, in controlled environment Status: Acute - Final Diagnosis (DSM 5) Condition upon Discharge: STABLE DSM 5: Bipolar disorder mixed severe without psychotic features Opioid use severe in early remission Disposition: HOME/ ROUTINE Follow-up Treatment Plan: Education: Pt was educated and counseled about the risks and benefits of taking and not taking medications. Pt was educated and counseled about the risks of drinking and abusing drugs. Pt was educated and counseled to go to the ER or call 911 if pt develop suicidal ideation or homicidal ideation, worsening of symptoms or severe side effects of the meds. Prescriptions/Medication Reconciliation: Escitalopram [Lexapro] 10 mg PO DAILY #30 tab Gabapentin [Neurontin] 400 mg PO TID #90 cap QUEtiapine [Seroquel] 100 mg PO HS #30 tab - Smoking Cessation Smoking Cessation Medication prescribed: No - Antipsychotic Medications Pt discharged on 2 or more routine antipsychotic medications: No
[2017-08-31] MEDS: Calcium-Vit D 250 mg-125 Units Tab UD PO SCH (09:55)
[2017-08-31] MEDS: Tmp-Smz 800 mg-160 mg DS Tab PO SCH (11:12)
== END 2017-08-31 12:55 | disposition home or self-care (01) | DRG 430 ==
LOC: C.ER 16:03 → C.5E 19:54
PROC: GZHZZZZ Group Psychotherapy (ICD-10-PCS; principal; 2017-08-23)
PROC: GZ58ZZZ Individual Psychotherapy, Cognitive-Behavioral (ICD-10-PCS; 2017-08-23)
PROC: GZ56ZZZ Individual Psychotherapy, Supportive (ICD-10-PCS; 2017-08-23)
PROC: HZ56ZZZ Individual Psychotherapy for Substance Abuse Treatment, Psychoeducation (ICD-10-PCS; 2017-08-23)
DX: F31.63 Bipolar disorder, current episode mixed, severe, without psychotic features (principal); R45.851 Suicidal ideations; N39.0 Urinary tract infection, site not specified; E03.9 Hypothyroidism, unspecified; F11.21 Opioid dependence, in remission; F41.9 Anxiety disorder, unspecified; Z79.899 Other long term (current) drug therapy